=== PATIENT | male | born 1970 ===

== ENCOUNTER 2023-02-08 07:05 | Day surgery (SDC) | payer OTHER ==
[~2023-02-08 07:05] MED LIST: ALIGN4 MG PO; AVAPRO150 MG PO; HYDRODIURIL12.5 MG PO; PREVACID15 M1 PO; TOPROL XL50 M1 PO; ZOCOR20 MG PO; ZYRTEC10 M3 PO
[2023-02-08] MEDS ORDERED: PERCOCET 5-3251 EACH PO (11:33)
== END 2023-02-08 16:15 | disposition home or self-care (01) ==
LOC: CIR.AMB 07:05
PROVIDERS: ATTEND Surgery
DX: C73 Malignant neoplasm of thyroid gland (principal); Z20.822 Contact with and (suspected) exposure to COVID-19